=== PATIENT | male | born 1970 | race Caucasian/White ===

== ENCOUNTER 2022-12-06 08:21 | Outpatient (CLI) | payer OTHER, SELFPAY ==
[2022-12-06 12:44] LABS: Chloride* 85 mmol/L (96-114)
[2022-12-06 12:47] LABS: Blood Urea Nitrogen* 20 mg/dL (7-30); Carbon Dioxide* 27 mmol/L (20-32); Cholesterol* 137 mg/dL (90-199); Creatinine* 0.6 mg/dL (0.5-1.5); Estimated Glomerular Filt Rate 115 ml/min
[2022-12-06 12:48] LABS: Calcium* 7.9 mg/dL (8.4-10.6); Glucose* 186 mg/dL (60-115); HDL Cholesterol* 49 mg/dL (>=40); LDL Cholesterol Calculated 59 mg/dL (<100); Triglycerides* 147 mg/dL (40-149)
[2022-12-06 12:49] LABS: Potassium* 4.5 mmol/L (3.6-5.1)
[2022-12-06 13:14] LABS: Sodium* 118 mmol/L (135-149)
== END 2022-12-06 08:22 | disposition home or self-care (01) ==
PROVIDERS: PCP Family Medicine; Visit Provider Family Medicine
DX: E78.5 Hyperlipidemia, unspecified (principal); I10 Essential (primary) hypertension
CPT/HCPCS: 80048; 80061

== ENCOUNTER 2022-12-09 15:11 | Outpatient (CLI) | payer OTHER, SELFPAY ==
[2022-12-11 23:29] LABS: C-Peptide, Serum or Plasma 6.9 ng/mL (0.5-3.3)
== END 2022-12-09 15:12 | disposition home or self-care (01) ==
LOC: LONREF 15:12
PROVIDERS: PCP Family Medicine; Visit Provider Family Medicine
DX: E11.9 Type 2 diabetes mellitus without complications (principal)
CPT/HCPCS: 84681

== ENCOUNTER 2024-04-16 08:53 | Outpatient (CLI) | payer OTHER, SELFPAY | END 2024-04-16 08:54 | disposition home or self-care (01) | PROVIDERS: PCP Family Medicine; Visit Provider Family Medicine | DX: E78.00 Pure hypercholesterolemia, unspecified (principal); E11.9 Type 2 diabetes mellitus without complications; Z79.84 Long term (current) use of oral hypoglycemic drugs; Z12.5 Encounter for screening for malignant neoplasm of prostate | CPT/HCPCS: 80048; 80061; G0103 ==

== ENCOUNTER 2025-04-29 08:41 | Outpatient (CLI) | payer OTHER, SELFPAY | END 2025-04-29 08:42 | disposition home or self-care (01) | PROVIDERS: PCP Family Medicine; Visit Provider Family Medicine | DX: I10 Essential (primary) hypertension (principal); E78.5 Hyperlipidemia, unspecified | CPT/HCPCS: 80048; 80061 ==

== ENCOUNTER 2025-11-01 08:46 | Outpatient (CLI) | payer OTHER, SELFPAY | END 2025-11-01 08:47 | disposition home or self-care (01) | LOC: LKVREF 08:48 | PROVIDERS: PCP Family Medicine; Visit Provider Family Medicine | DX: E11.65 Type 2 diabetes mellitus with hyperglycemia (principal); I10 Essential (primary) hypertension; E78.00 Pure hypercholesterolemia, unspecified | CPT/HCPCS: 80048 ==